=== PATIENT | female | born 1945 | race African-American/Black ===

== ENCOUNTER → 2016-08-12 10:03 | Outpatient (CLI) | payer MEDICARE, OTHER | END | disposition home or self-care (01) | LOC: D.MRI 08-08 10:00 | DX: M54.16 Radiculopathy, lumbar region (principal) ==

== ENCOUNTER → 2017-01-15 12:44 | Outpatient (CLI) | payer MEDICARE, OTHER | END | disposition home or self-care (01) | LOC: D.RAD 12:44 | DX: M25.562 Pain in left knee (principal) ==